=== PATIENT | male | born 1990 | race Caucasian/White ===

== ENCOUNTER 2016-04-16 21:54 | Emergency (ER) | payer OTHER ==
[~2016-04-16] VITALS: Ht 177.8 cm; Wt 127.0 kg
[~2016-04-16 21:54] MED LIST: AMOXIL500 MG PO; POLYTRIM EYE DR10 ML OPH; PREDNISONE10 MG PO; PROAIR HFA0.09 MG/Ac INH; ROBITUSSIN W/CO10 ML PO; TESSALON PERLE100 MG PO; ZITHROMAX Z-PA250 M1 PO
--- NOTE | 2016-04-16 22:40 | ED UPPER/LOWER EXTREMITY COMPL ---
History of Present Illness General Chief Complaint: General Adult Stated Complaint: PT HAS PAIN IN ARM AND NUMB FINGER 3DYS Source: patient Exam Limitations: no limitations Vital Signs & Intake/Output Vital Signs & Intake/Output Vital Signs Date Time Temp Pulse Resp B/P Pulse O2 O2 Flow FiO2 Ox Delivery Rate 04/16 2314 97.8 84 20 129/82 99 Room Air 04/16 2158 97.8 81 20 133/85 98 Room Air ED Intake and Output 04/17 0000 04/16 1200 Intake Total Output Total Balance Patient 280 lb Weight Allergies Coded Allergies: NO KNOWN ALLERGIES (04/16/16) Reconcile Medications Acetaminophen (Tylenol Extra Strength) 500 MG TABLET 2 TAB PO PRN PAIN ( Reported) Cyclobenzaprine HCl 10 MG TABLET 1 TAB PO 4 TIMES/DAY PRN MUSCLE SPASM Ibuprofen 800 MG TABLET 1 TAB PO PRN PAIN (Reported) Ibuprofen 800 MG TABLET 1 TAB PO TID PRN pain Triage Note: TRIAGE: PT TO ER C/C BILATERAL NUMBNESS/TINGLING X 3 DAYS, INTERMITTENT SINCE ONSET. 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 STATES HE ALSO FEELS WEAK. Triage Nurses Notes Reviewed? yes Onset: Gradual Duration: day(s): Timing: recent history Severity: mild, moderate Pain/Injury Location: Bilateral: Forearm. Method of Injury: unknown Modifying Factors: Improves With: rest. Worsens With: movement. Associated Symptoms: stiffness, muscle spasm HPI: 25-year-old gentleman presents with bilateral forearms stiffness, left worse than right. He states that he has had pain numbness and tingling mostly in his left arm, and a little bit in his right arm. 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 He has no neck pain weakness shooting pain. He has no swelling. No redness or erythema. He states it hurts when he moves his hands. He is otherwise well and has no other concerns. Past History Travel History Traveled to [place] past 21 day No Medical History Any Pertinent Medical History? see below for history Neurological: NONE EENT: NONE Cardiovascular: NONE Respiratory: NONE Gastrointestinal: NONE Hepatic: NONE Renal: NONE Musculoskeletal: NONE Psychiatric: NONE Endocrine: NONE Blood Disorders: NONE Cancer(s): NONE [employer]/Reproductive: NONE Tetanus Vaccine: 01/03/14 Surgical History Surgical History: non-contributory Psychosocial History What is your primary language Macedonian Tobacco Use: Never used ETOH Use: denies use Illicit Drug Use: denies illicit drug use Family History Hx Contributory? No Review of Systems Review of Systems Constitutional: Reports: no symptoms. EENTM: Reports: no symptoms. Respiratory: Reports: no symptoms. Cardiovascular: Reports: no symptoms. Gastrointestinal/Abdominal: Reports: no symptoms. Genitourinary: Reports: no symptoms. Musculoskeletal: Reports: no symptoms. Skin: Reports: no symptoms. Neurological/Psychological: Reports: no symptoms. Hematologic/Endocrine: Reports: no symptoms. Immunological: Reports: no symptoms. All Other Systems: Reviewed and Negative Physical Exam Physical Exam General Appearance: well developed/nourished, mild distress Head: atraumatic Eyes: Bilateral: normal appearance. Ears, Nose, Throat: normal pharynx, normal ENT inspection, hearing grossly normal Neck: normal inspection, supple Cardiovascular/Respiratory: regular rate/rhythm Back: normal inspection Skin: intact, normal color, warm/dry Lymphatic: no anterior cervical stu Comments: Left arm: Muscle spasm and tenderness along the left flexors of the forearm. Normal strength light touch in distal pulses. Negative Tinel's and Phalen's sign.No erythema. No edema Right forearm, normal strength. No tenderness to palpation. Normal strength light touch distal pulses. No erythema. No edema Progress Differential Diagnosis: muscle spasm vs carpal tunnel vs other. Plan of Care: benign exam. likely musclo-skeletal, i doubt more concerning issues... advocated nsaids and flexeril... pt follow up in 2 days with me if not better. Departure Departure Disposition: HOME OR SELF CARE Condition: Stable Clinical Impression Primary Impression: Muscle strain Referrals: PATIENT HAS NO PRIMARY CARE DR (PCP/Family) Departure Forms: Customer Survey General Discharge Information Prescriptions: Current Visit Scripts Ibuprofen 1 TAB PO TID PRN pain #30 TAB Cyclobenzaprine HCl 1 TAB PO 4 TIMES/DAY PRN MUSCLE SPASM #30 TAB Ref 1
[2016-04-16] MEDS ORDERED: IBUPROFEN800 M1 PO ×2 (22:49→23:00)
[2016-04-16] MEDS ORDERED: TYLENOL EXTRA500 M2 PO (22:49)
[2016-04-16] MEDS ORDERED: CYCLOBENZAPRINE10 M1 PO (23:01)
[2016-04-16 23:14] VITALS: BP 129/82
== END 2016-04-16 23:15 ==
LOC: ERH 21:54
DX: S46.812A Strain of other muscles, fascia and tendons at shoulder and upper arm level, left arm, initial encounter (principal); X58.XXXA Exposure to other specified factors, initial encounter